=== PATIENT | female | born 1945 | race Caucasian/White ===

== ENCOUNTER 2017-01-23 07:26 | Emergency (ER) | payer MEDICARE ==
[~2017-01-23] VITALS: Ht 165.1 cm; Wt 68.0 kg
[~2017-01-23 07:26] MED LIST: DOXY100T PO; ENOX40SY4 SQ; HYDR12.53 PO; HYDR25TA6 PO; IBUP200C PO; IPRA15SP2 INH; LEVO25TA2 PO; LEVO500T33 PO; OXYC20TA42 PO; OXYC5TAB3 PO; PANT40TA5 PO; POLY17PO5 PO; PRED5TAB PO; PROM25AM2 IM; SALM50DI INH; SENN-31 PO; SIMV5TAB PO; TEMA15CA PO; TIOT18CA INH
[2017-01-23 07:34] VITALS: BP 137/47
[2017-01-23] MEDS ORDERED: SODIUM CHLORIDE 0.9% 1,000 ML IV ONE (07:35)
[2017-01-23] MEDS ORDERED: PRED20TA PO (07:40)
[2017-01-23] MEDS ORDERED: VITA150T PO (07:40)
[2017-01-23] MEDS ORDERED: CHOL5000 PO (07:40)
[2017-01-23] MEDS ORDERED: RIVA20TA PO (07:40)
[2017-01-23] MEDS ORDERED: SIMV40TA3 PO (07:40)
[2017-01-23] MEDS ORDERED: OMEG-120 PO (07:40)
[2017-01-23] MEDS ORDERED: LEVO100T5 PO (07:40)
[2017-01-23] MEDS ORDERED: ASCO10004 PO (07:40)
[2017-01-23] MEDS ORDERED: VITA400C40 PO (07:40)
[2017-01-23] MEDS ORDERED: HYDR25TA6 PO (07:40)
[2017-01-23] MEDS ORDERED: ONDANSETRON 2MG/ML, 2ML IVPush ONE (08:00)
[2017-01-23] MEDS ORDERED: MORPHINE SULFATE 4 MG/ML, 1ML IVPush PRN (08:00)
[2017-01-23] MEDS ORDERED: DIAZEPAM 5 MG TABLET PO ONE (08:00)
[2017-01-23] MEDS ORDERED: DIAZEPAM 5 MG/ML, 2ML ONE (08:14)
[2017-01-23] MEDS ORDERED: MORPHINE SULFATE 4 MG/ML, 1ML ONE (08:14)
[2017-01-23] MEDS ORDERED: ONDANSETRON 2MG/ML, 2ML ONE (08:14)
[2017-01-23] MEDS ORDERED: DIAZEPAM 5 MG/ML, 2ML IVPush ONE (08:30)
== END 2017-01-23 09:31 | disposition home or self-care (01) ==
LOC: ED 08:53
DX: S39.012A Strain of muscle, fascia and tendon of lower back, initial encounter (principal); I10 Essential (primary) hypertension; J44.9 Chronic obstructive pulmonary disease, unspecified; W19.XXXA Unspecified fall, initial encounter; Y93.89 Activity, other specified; Y92.89 Other specified places as the place of occurrence of the external cause; Y99.9 Unspecified external cause status
CPT/HCPCS: 72110; 96361; 96374; 96375; 99284; J2405; J3360; J7030

== ENCOUNTER 2017-06-11 09:24 | Inpatient (IN) | payer MEDICARE ==
[~2017-06-11] VITALS: Ht 165.1 cm; Wt 65.0 kg
[~2017-06-11 09:24] MED LIST changes: +ASCO10004 PO; +CHOL5000 PO; -IBUP200C PO; +IBUP200C5 PO; +LEVO100T5 PO; -LEVO500T33 PO; +LEVO500T47 PO; +OMEG-120 PO; +PRED20TA PO; +RIVA20TA PO; +SIMV40TA3 PO; +VITA150T PO; +VITA400C43 PO
[2017-06-11] MEDS ORDERED: SODIUM CHLORIDE FLUSH 10ML SYR IVF ONE (10:00)
[2017-06-11 10:28] LABS: HEMATOCRIT 32.6 % (34.6-47.8); HEMOGLOBIN 10.9 g/dL (11.7-16.4); WHITE BLOOD COUNT 8.9 x10^3/uL (3.4-10)
[2017-06-11 10:40] LABS: ASPARTATE AMINO TRANSFERASE 16 U/L (15-37); BLOOD UREA NITROGEN 7 mg/dL (7-18)
[2017-06-11] MEDS ORDERED: CEFTRIAXONE PMX 1GM/50ML 50 ML IVPB ONE (13:30)
[2017-06-11] MEDS ORDERED: OXYGEN 2 LITERS (13:36)
[2017-06-11] MEDS ORDERED: RALO60TA12 PO (13:38)
[2017-06-11] MEDS ORDERED: SODIUM CHLORIDE FLUSH 10ML SYR IVF PRN (15:00)
[2017-06-11 16:11] VITALS: BP 145/77
[2017-06-11] MEDS ORDERED: HYDROcodone/APAP 5/325 TABLET PO PRN (16:30)
[2017-06-11] MEDS ORDERED: LABETALOL 5MG/ML, 20ML IVPush PRN (16:30)
[2017-06-11] MEDS ORDERED: ONDANSETRON ODT 4 MG PO PRN (16:30)
[2017-06-11] MEDS ORDERED: ONDANSETRON 2MG/ML, 2ML IVPush PRN (16:30)
[2017-06-11] MEDS ORDERED: POLYETHYLENE GLYCOL 17 GM PACKET PO PRN (16:30)
[2017-06-11] MEDS ORDERED: ENOXAPARIN 40 MG/0.4 ML SQ SCH (18:00)
[2017-06-11 19:56] VITALS: BP 137/82
[2017-06-11] MEDS ORDERED: SIMVASTATIN 40 MG TABLET PO SCH (21:00)
[2017-06-11] MEDS: IPRATROPIUM 0.5 MG/2.5 ML INHA NPPB SCH (21:37)
[2017-06-12 02:41] VITALS: BP 120/77
[2017-06-12] MEDS: IPRATROPIUM 0.5 MG/2.5 ML INHA NPPB SCH ×3 (02:46→14:00)
[2017-06-12 05:35] LABS: HEMOGLOBIN 10.3 g/dL (11.7-16.4); WHITE BLOOD COUNT 6.4 x10^3/uL (3.4-10)
[2017-06-12 05:43] LABS: BLOOD UREA NITROGEN 7 mg/dL (7-18)
[2017-06-12] MEDS ORDERED: LEVOTHYROXINE 100 MCG TABLET PO SCH (06:00)
[2017-06-12] MEDS ORDERED: LEVOTHYROXINE 25 MCG TABLET PO SCH (06:00)
[2017-06-12 06:11] LABS: ASPARTATE AMINO TRANSFERASE 19 U/L (15-37)
[2017-06-12 07:02] VITALS: BP 136/80
[2017-06-12] MEDS ORDERED: POTASSIUM CHLORIDE 20 MEQ TAB.ER.PRT PO ONE (07:30)
[2017-06-12] MEDS ORDERED: MAGNESIUM SULFATE PMX 2GM/50ML 50 ML IV ONE (08:00)
[2017-06-12] MEDS ORDERED: RIVAROXABAN 20 MG TABLET PO SCH (09:00)
[2017-06-12] MEDS ORDERED: SENNA/DOCUSATE TABLET PO SCH (09:00)
[2017-06-12] MEDS ORDERED: ASCORBIC ACID 500 MG TABLET PO SCH (09:00)
[2017-06-12] MEDS ORDERED: CHOLECALCIFEROL 1,000 UNIT TABLET PO SCH (09:00)
[2017-06-12] MEDS: CEPHALEXIN 500 MG CAPSULE PO SCH ×2 (10:23→11:00)
[2017-06-12] MEDS ORDERED: CEPH-376 PO (11:25)
[2017-06-12 13:13] VITALS: BP 123/73
== END 2017-06-12 15:35 | disposition home or self-care (01) | DRG 602 ==
LOC: ED 13:23 → EDIP 14:42 → 3NE 17:05
PROVIDERS: ADMIT Hospitalist; ATTEND Hospitalist
DX: L03.115 Cellulitis of right lower limb (principal); E43 Unspecified severe protein-calorie malnutrition; Z99.81 Dependence on supplemental oxygen; D68.69 Other thrombophilia; I50.30 Unspecified diastolic (congestive) heart failure; I11.0 Hypertensive heart disease with heart failure; I48.91 Unspecified atrial fibrillation; E87.1 Hypo-osmolality and hyponatremia; J44.9 Chronic obstructive pulmonary disease, unspecified; D53.9 Nutritional anemia, unspecified; E03.9 Hypothyroidism, unspecified; G89.29 Other chronic pain; M54.9 Dorsalgia, unspecified; E78.5 Hyperlipidemia, unspecified; M06.9 Rheumatoid arthritis, unspecified; M81.0 Age-related osteoporosis without current pathological fracture; Z82.49 Family history of ischemic heart disease and other diseases of the circulatory system; Z87.891 Personal history of nicotine dependence; Z88.0 Allergy status to penicillin; Z88.8 Allergy status to other drugs, medicaments and biological substances; Z68.23 Body mass index [BMI] 23.0-23.9, adult
CPT/HCPCS: 36415; 80053; 82306; 82607; 82746; 83605; 83735; 84439; 85025; 85610; 85651; 85730; 86141; 87040; 94640; 96365; 96366; J0696; J7644; J3475